=== PATIENT | female | born 1945 | race Two or more races ===

== ENCOUNTER 2023-12-12 11:12 | Inpatient (IN) | payer OTHER ==
[~2023-12-12] VITALS: Ht 152.4 cm; Wt 52.2 kg
[2023-12-12] MEDS ORDERED: KETOROLAC TROMETHAMINE 30 MG VIAL IM STA (12:40)
[2023-12-12] MEDS ORDERED: KETOROLAC TROMETHAMINE 30 MG VIAL ONE ×2 (12:55→20:27)
[2023-12-12 13:13] LABS: HEMATOCRIT 31.5 % (36.0-45.00); MEAN CELL VOLUME 94.6 fL (80.00-100.00); MEAN CORPUSCULAR HGB CONC 31.7 g/dl (32.0-36.0); PLATELET COUNT 194 K/uL (150-450); RED BLOOD COUNT 3.33 M/uL (4.00-6.00); RED CELL DISTRIBUTION WIDTH 13.8 % (11.5-14.5)
[2023-12-12 13:36] LABS: CALCIUM 9.2 mg/dL (8.5-10.1); CREATININE SERUM 0.86 mg/dL (0.55-1.02); GFR 63.65; POTASSIUM 4.07 mEq/L (3.5-5.1)
[2023-12-12] MEDS ORDERED: 0.9 % SODIUM CHLORIDE 1,000 ML IV STA (13:45)
[2023-12-12 13:46] LABS: URINE APPEARANCE Clear; URINE BILIRRUBIN Negative (NEGATIVE); URINE BLOOD Negative; URINE COLOR Red; URINE GLUCOSE Negative (NEGATIVE); URINE KETONE Negative (NEGATIVE); URINE LEUKOCYTE Moderate; URINE NITRATE Positive; URINE PROTEIN Trace (NEGATIVE)
[2023-12-12 13:47] LABS: URINE BACTERIA 8.8 uL (0.0-1933); URINE EPITHELIAL CELLS 17.6 uL (0.0-38.8); URINE RBC 22.7 uL (0.0-20.8); URINE WBC 8.8 uL (0.0-23.2)
[2023-12-12] MEDS ORDERED: CEFTRIAXONE SODIUM 2,000 MG VIAL IV STA (14:41)
[2023-12-12] MEDS ORDERED: CEFTRIAXONE SODIUM 2,000 MG VIAL ONE (14:59)
[2023-12-12] MEDS ORDERED: ONDANSETRON HCL 2 MG/ML VIAL ONE (16:44)
[2023-12-12] MEDS ORDERED: ONDANSETRON HCL 2 MG/ML VIAL IV ONE (16:45)
[2023-12-12] MEDS ORDERED: PHENAZOPYRIDINE HCL 100 MG TABLET PO SCH (19:55)
[2023-12-12] MEDS ORDERED: 0.9 % SODIUM CHLORIDE 1,000 ML IV SCH (20:00)
[2023-12-12] MEDS ORDERED: ACETAMINOPHEN 500 MG GEL..CAP PO PRN (20:00)
[2023-12-12] MEDS ORDERED: ONDANSETRON HCL 4 MG in 0.9 % SODIUM CHLORIDE 50 ML IV PRN (20:00)
[2023-12-12] MEDS ORDERED: KETOROLAC TROMETHAMINE 15 MG VIAL IU ONE (20:00)
[2023-12-12] MEDS ORDERED: PHENAZOPYRIDINE HCL 100 MG TABLET PO ONE (20:27)
[2023-12-12 21:17] VITALS: BP 132/76
[2023-12-12 21:36] LABS: INR 1.01; PARTIAL THROMBOPLASTIN TIME 26.5 SECONDS (22.0-34.0)
[2023-12-13 02:00] VITALS: BP 146/71
[2023-12-13] MEDS ORDERED: FAMOTIDINE/PF 20 MG in 0.9 % SODIUM CHLORIDE 8 ML IV PUSH SCH (09:00)
[2023-12-13] MEDS ORDERED: CEFTRIAXONE SODIUM 2,000 MG in 0.9 % SODIUM CHLORIDE 100 ML IV SCH (09:00)
[2023-12-13] MEDS ORDERED: LOSARTAN POTASSIUM 25 MG TABLET PO SCH (09:00)
[2023-12-13 09:18] VITALS: BP 145/76
[2023-12-13 17:57] VITALS: BP 145/60
[2023-12-13] MEDS ORDERED: LACTULOSE 20 G/30 ML BLIST.PACK PO ONE (21:30)
[2023-12-13] MEDS ORDERED: MINERAL OIL 30 ML BLIST.PACK PO ONE (21:30)
[2023-12-13] MEDS ORDERED: MAGNESIUM HYDROXIDE 30 ML BLIST.PACK PO ONE ×2 (21:30→22:59)
[2023-12-13] MEDS ORDERED: LACTULOSE 20 G/30 ML BLIST.PACK ONE (22:59)
[2023-12-13] MEDS ORDERED: MINERAL OIL 30 ML BLIST.PACK ONE (22:59)
[2023-12-14 00:55] VITALS: BP 144/70
[2023-12-14] MEDS ORDERED: FAMOTIDINE/PF 20 MG/2 ML VIAL ONE (07:27)
[2023-12-14 07:59] LABS: HEMATOCRIT 27.1 % (36.0-45.00); MEAN CELL VOLUME 94.9 fL (80.00-100.00); MEAN CORPUSCULAR HGB CONC 32.3 g/dl (32.0-36.0); PLATELET COUNT 171 K/uL (150-450); RED BLOOD COUNT 2.85 M/uL (4.00-6.00); RED CELL DISTRIBUTION WIDTH 13.6 % (11.5-14.5)
[2023-12-14 08:01] LABS: HEMOGLOBIN 8.8 g/dL (12.0-15.00); MEAN CORPUSCULAR HEMOGLOBIN 30.8 pg (27.00-32.0)
[2023-12-14 09:01] LABS: ALBUMIN 3.4 gm/dL (3.4-5.0); BILIRUBIN TOTAL 0.59 mg/dL (0.3-1.2); CALCIUM 8.3 mg/dL (8.5-10.1); CREATININE SERUM 0.7 mg/dL (0.55-1.02); GFR 80.72; GLOBULINA 2.3 G/DL (2.4-3.5); MAGNESIUM 2.3 mg/dL (1.8-2.4); PHOSPHOROUS 2.3 mg/dL (2.5-4.9); POTASSIUM 4.17 mEq/L (3.5-5.1); TOTAL PROTEIN 5.7 gm/dL (6.4-8.2)
[2023-12-14 10:09] VITALS: BP 149/62
[2023-12-14] MEDS ORDERED: IRON FUM,PS/FOLIC ACID/VITC/B3 1 CAP CAPSULE PO SCH (13:43)
[2023-12-14 16:56] VITALS: BP 154/67
[2023-12-14] MEDS ORDERED: VITAMIN B COMPLEX 1 EACH PO SCH (17:00)
[2023-12-14] MEDS ORDERED: SOD FERRIC GLUC COMPLX/SUCROSE 62.5 MG/5 ML AMPUL IV SCH (17:00)
[2023-12-14] MEDS ORDERED: Cyanocobalamin/Mecobalamin 1 TAB.SL SL SCH (17:00)
[2023-12-14] MEDS ORDERED: SODIUM CHLORIDE 0.45 % 1,000 ML IV SCH (21:15)
[2023-12-14] MEDS ORDERED: LACTULOSE 10 G/15 ML ML PO ONE (21:15)
[2023-12-15 02:00] VITALS: BP 137/61
[2023-12-15] MEDS ORDERED: FAMOTIDINE/PF 20 MG/2 ML VIAL ONE (08:20)
[2023-12-15 08:56] VITALS: BP 147/70; O2SAT 98
[2023-12-15 09:30] LABS: HEMATOCRIT 27.1 % (36.0-45.00); MEAN CELL VOLUME 95.4 fL (80.00-100.00); MEAN CORPUSCULAR HEMOGLOBIN 30.6 pg (27.00-32.0); MEAN CORPUSCULAR HGB CONC 32.1 g/dl (32.0-36.0); PLATELET COUNT 170 K/uL (150-450); RED BLOOD COUNT 2.84 M/uL (4.00-6.00); RED CELL DISTRIBUTION WIDTH 13.6 % (11.5-14.5)
[2023-12-15 09:50] LABS: ALBUMIN 3.5 gm/dL (3.4-5.0); BILIRUBIN TOTAL 0.51 mg/dL (0.3-1.2); CALCIUM 8.7 mg/dL (8.5-10.1); CREATININE SERUM 0.68 mg/dL (0.55-1.02); GFR 83.47; GLOBULINA 2.4 G/DL (2.4-3.5); MAGNESIUM 2.3 mg/dL (1.8-2.4); PHOSPHOROUS 2.5 mg/dL (2.5-4.9); POTASSIUM 4.42 mEq/L (3.5-5.1); TOTAL PROTEIN 5.9 gm/dL (6.4-8.2)
[2023-12-15 10:03] LABS: HEMOGLOBIN 8.7 g/dL (12.0-15.00)
[2023-12-15 17:02] VITALS: BP 162/71
[2023-12-16 02:00] VITALS: BP 136/61
[2023-12-16 08:39] LABS: HEMATOCRIT 27.2 % (36.0-45.00); MEAN CELL VOLUME 94.2 fL (80.00-100.00); MEAN CORPUSCULAR HEMOGLOBIN 30.2 pg (27.00-32.0); MEAN CORPUSCULAR HGB CONC 32.1 g/dl (32.0-36.0); PLATELET COUNT 175 K/uL (150-450); RED BLOOD COUNT 2.88 M/uL (4.00-6.00); RED CELL DISTRIBUTION WIDTH 13.8 % (11.5-14.5)
[2023-12-16 09:09] LABS: HEMOGLOBIN 8.7 g/dL (12.0-15.00)
[2023-12-16 09:33] VITALS: BP 150/70
[2023-12-16 17:17] VITALS: BP 155/68
[2023-12-17 02:00] VITALS: BP 152/72
[2023-12-17 06:47] LABS: HEMATOCRIT 26.2 % (36.0-45.00); MEAN CELL VOLUME 94.7 fL (80.00-100.00); MEAN CORPUSCULAR HGB CONC 32.6 g/dl (32.0-36.0); PLATELET COUNT 182 K/uL (150-450); RED BLOOD COUNT 2.76 M/uL (4.00-6.00); RED CELL DISTRIBUTION WIDTH 13.4 % (11.5-14.5)
[2023-12-17 07:08] LABS: MEAN CORPUSCULAR HEMOGLOBIN 30.7 pg (27.00-32.0)
[2023-12-17 07:09] LABS: HEMOGLOBIN 8.5 g/dL (12.0-15.00)
[2023-12-17 08:55] VITALS: BP 137/88
[2023-12-17 08:59] LABS: PH,URINE 6.5 (5.0-8.0); URINE APPEARANCE Clear; URINE BILIRRUBIN Negative (NEGATIVE); URINE BLOOD Negative; URINE COLOR Yellow; URINE GLUCOSE Negative (NEGATIVE); URINE KETONE Negative (NEGATIVE); URINE LEUKOCYTE Moderate; URINE NITRATE Negative; URINE PROTEIN Negative (NEGATIVE); URINE UROBILINOGEN 0.2 E.U./dl
[2023-12-17] MEDS ORDERED: FAMOTIDINE/PF 20 MG/2 ML VIAL ONE (08:59)
[2023-12-17 09:04] LABS: URINE EPITHELIAL CELLS 9.2 uL (0.0-38.8); URINE RBC 2.4 uL (0.0-20.8); URINE WBC 86.2 uL (0.0-23.2)
[2023-12-17 09:49] LABS: PLATELET ESTIMATE NORMAL (NORMAL)
[2023-12-17] MEDS ORDERED: FUROsemide 20 MG/2 ML VIAL IV SCH (10:15)
[2023-12-17] MEDS ORDERED: MAG HYDROX/ALUMINUM HYD/SIMETH 30 ML BLIST.PACK PO NR (11:53)
[2023-12-17 16:00] VITALS: BP 168/80; O2SAT 95
[2023-12-17 17:31] LABS: PH,URINE 6.5 (5.0-8.0); URINE APPEARANCE Clear; URINE BILIRRUBIN Negative (NEGATIVE); URINE BLOOD Negative; URINE COLOR Yellow; URINE GLUCOSE Negative (NEGATIVE); URINE KETONE Negative (NEGATIVE); URINE LEUKOCYTE Trace; URINE NITRATE Negative; URINE PROTEIN Negative (NEGATIVE); URINE UROBILINOGEN 0.2 E.U./dl
[2023-12-17 17:32] LABS: URINE BACTERIA 26.4 uL (0.0-1933); URINE EPITHELIAL CELLS 3.2 uL (0.0-38.8); URINE RBC 5.8 uL (0.0-20.8); URINE WBC 14.5 uL (0.0-23.2)
[2023-12-17] MEDS ORDERED: DICYCLOMINE HCL 20 MG TABLET PO PRN (17:45)
[2023-12-17] MEDS ORDERED: LORazepam 2 MG/ML VIAL ONE (21:44)
[2023-12-17] MEDS ORDERED: LORazepam 2 MG/ML VIAL IV STA (21:55)
[2023-12-17] MEDS ORDERED: LORazepam 2 MG/ML VIAL IV PRN (22:00)
[2023-12-18 02:16] VITALS: BP 160/70; O2SAT 97
[2023-12-18 08:58] VITALS: BP 161/78; O2SAT 99
[2023-12-18 10:15] LABS: ABG PH 7.461 (7.35-7.45); ABG PO2 78.1 mmHg (80-100); ABG pCO2 37.6 mmHg (35-45); BASE EXCESS 2.5 mmol/l; BICARBONATE 26.2 mmol/l (23-25); SaO2 96.3 %; Tco2 27.3 mmol/l
[2023-12-18 10:39] LABS: allen test SATISFACTORY; o2 21 %; puncture site RADIAL RIGHT
[2023-12-18] MEDS ORDERED: LEVALBUTEROL HCL 0.63 MG/3 ML SOLUTION IH SCH (12:00)
[2023-12-18] MEDS ORDERED: GUAIFENESIN 100 MG/5 ML BLIST.PACK PO SCH (13:00)
[2023-12-18 15:00] VITALS: BP 147/73; O2SAT 97
[2023-12-19 02:00] VITALS: BP 152/63; O2SAT 93
[2023-12-19 07:29] VITALS: BP 156/76
[2023-12-19 20:22] VITALS: BP 155/73; O2SAT 97
[2023-12-20 01:33] VITALS: BP 161/74
[2023-12-20 07:05] LABS: HEMATOCRIT 36.8 % (36.0-45.00); MEAN CELL VOLUME 89.3 fL (80.00-100.00); MEAN CORPUSCULAR HGB CONC 33.2 g/dl (32.0-36.0); PLATELET COUNT 193 K/uL (150-450); RED BLOOD COUNT 4.12 M/uL (4.00-6.00)
[2023-12-20 07:08] LABS: HEMOGLOBIN 12.2 g/dL (12.0-15.00); MEAN CORPUSCULAR HEMOGLOBIN 29.6 pg (27.00-32.0); RED CELL DISTRIBUTION WIDTH 16.8 % (11.5-14.5)
[2023-12-20 07:10] LABS: ALBUMIN 3.8 gm/dL (3.4-5.0); BILIRUBIN TOTAL 0.51 mg/dL (0.3-1.2); CALCIUM 9.4 mg/dL (8.5-10.1); CREATININE SERUM 0.7 mg/dL (0.55-1.02); GFR 80.51; GLOBULINA 2.7 G/DL (2.4-3.5); MAGNESIUM 2.2 mg/dL (1.8-2.4); PHOSPHOROUS 3.6 mg/dL (2.5-4.9); POTASSIUM 4.19 mEq/L (3.5-5.1); TOTAL PROTEIN 6.5 gm/dL (6.4-8.2)
[2023-12-20 10:10] VITALS: BP 138/59
[2023-12-20] MEDS ORDERED: MEROPENEM 500 MG/VIAL VIAL IV SCH (12:00)
[2023-12-20 18:20] VITALS: BP 144/75
[2023-12-21 02:05] VITALS: BP 150/64
[2023-12-21 09:24] VITALS: BP 150/67
== END 2023-12-21 14:45 | disposition home or self-care (01) | DRG 690 ==
LOC: ER 11:13 → MEDJ 20:14 → EDBD 20:14 → MEDJ 12-21 14:45
PROVIDERS: General Practice; Internal Medicine; Internal Medicine Hematology & Oncology; Internal Medicine Infectious Disease; ADMIT Internal Medicine; ATTEND Internal Medicine
PROC: BW21ZZZ Computerized Tomography (CT Scan) of Abdomen and Pelvis (ICD-10-PCS; principal; 2023-12-12)
PROC: 3E0F7GC Introduction of Other Therapeutic Substance into Respiratory Tract, Via Natural or Artificial Opening (ICD-10-PCS; 2023-12-18)
PROC: 30233N1 Transfusion of Nonautologous Red Blood Cells into Peripheral Vein, Percutaneous Approach (ICD-10-PCS; 2023-12-18)
PROC: BB24YZZ Computerized Tomography (CT Scan) of Bilateral Lungs using Other Contrast (ICD-10-PCS; 2023-12-19)
DX: N39.0 Urinary tract infection, site not specified (principal); C91.10 Chronic lymphocytic leukemia of B-cell type not having achieved remission; E87.3 Alkalosis; D52.0 Dietary folate deficiency anemia; D51.8 Other vitamin B12 deficiency anemias; D64.89 Other specified anemias; K59.09 Other constipation; J44.9 Chronic obstructive pulmonary disease, unspecified; G31.84 Mild cognitive impairment of uncertain or unknown etiology; Z87.891 Personal history of nicotine dependence; B96.1 Klebsiella pneumoniae [K. pneumoniae] as the cause of diseases classified elsewhere